=== PATIENT | female | born 1960 | race African-American/Black ===

== ENCOUNTER 2023-07-02 16:21 | Emergency (ER) | payer OTHER ==
[2023-07-02 16:43] VITALS: BP 134/68; PULSE 78; RESP 16; TEMP 98.8; BMI 30.9
[2023-07-02 18:07] LABS: HEMOGLOBIN 14.2 G/dL (10.7-15.3); MCH 31.3 pg (25.7-33.7); MCHC 33.9 g/dl (32.0-36.0); MEAN CELL VOLUME 92.5 fl (80-96); MEAN PLT VOLUME 8.8 fl (7.5-11.1); PLATELET COUNT 230.8 10^3/uL (134-434); RBC 4.54 10^6/uL (3.60-5.2); RDW 13.8 % (11.6-15.6); WHITE BLOOD COUNT 6.1 10^3/uL (4.0-10.8)
[2023-07-02 18:21] LABS: ALBUMIN 3.8 g/dl (3.4-5.0); ALK PHOS 48 U/L (45-117); ANION GAP 3 mmol/L (4-13); BILIRUBIN,TOTAL 0.2 mg/dl (0.2-1); CALCIUM 9.8 mg/dl (8.5-10.1); CHLORIDE 104 mmol/L (98-107); CO2 31 mmol/L (21-32); CREATININE 0.8 mg/dl (0.6-1.3); GLUCOSE,RANDOM 88 mg/dl (74-106); POTASSIUM 4.2 mmol/L (3.5-5.1); SGOT/AST 16 U/L (15-37); SGPT/ALT 15 U/L (7-52); SODIUM 138 mmol/L (136-145); TOT PROT 6.7 g/dl (6.4-8.2)
[2023-07-02] MEDS ORDERED: ACETAMINOPHEN 500 MG TABLET (FP) ONE (19:33)
[2023-07-02] MEDS: ACETAMINOPHEN 500 MG TABLET (FP) PO ONE (19:42)
[2023-07-02 20:19] LABS: PLATELET ESTIMATE ADEQUATE
== END 2023-07-02 19:48 | disposition home or self-care (01) ==
LOC: FER 16:21
DX: M79.661 Pain in right lower leg (principal); M25.561 Pain in right knee; R22.41 Localized swelling, mass and lump, right lower limb
CPT/HCPCS: 36415; 73562-TC-RT-FY; 80053; 85027; 85651; 86140; 93971-TC; 99285-25

== ENCOUNTER 2023-12-13 10:50 | Emergency (ER) | payer OTHER ==
[2023-12-13 11:17] VITALS: BP 130/70; PULSE 63; RESP 18; TEMP 98.2; BMI 31.2
== END 2023-12-13 12:15 | disposition home or self-care (01) ==
LOC: FER 10:50
DX: M79.671 Pain in right foot (principal)
CPT/HCPCS: 93971-RT; 99283-25